=== PATIENT | male | born 1985 ===

== ENCOUNTER 2021-02-25 20:10 | Emergency (ER) | payer SELFPAY ==
[~2021-02-25] VITALS: Ht 188 cm; Wt 86.4 kg
[2021-02-25 20:14] VITALS: BP 118/58
== END 2021-02-25 20:15 | disposition left against medical advice (07) ==
LOC: EMS 20:11
DX: R25.1 Tremor, unspecified (principal); Z53.21 Procedure and treatment not carried out due to patient leaving prior to being seen by health care provider